=== PATIENT | female | born 1965 | race American Indian/Alaskan Native ===

== ENCOUNTER 2021-08-10 07:13 | Emergency (ER) | payer SELFPAY ==
[2021-08-10 07:24] VITALS: BP 145/64
[2021-08-10] MEDS ORDERED: HYDROcodone/ACETAMINOPHEN 10-325MG TAB PO ONE (07:29)
[2021-08-10 08:04] LABS: Basophils # (Auto) 0.1 K/mm3 (0.0-0.1); Basophils % (Auto) 1.6 % (0.0-1.8); Eosinophils # (Auto) 0.1 K/mm3 (0.0-0.4); Hematocrit 39.1 % (30.3-42.9); Hemoglobin 13.4 gm/dl (10.1-14.3); Lymphocytes # (Auto) 1.9 K/mm3 (1.2-5.4); Lymphocytes % (Auto) 37.9 % (13.4-35.0); Mean Corpuscular HGB Conc 34 % (30-34); Mean Corpuscular Volume 97 fl (79-97); Monocytes # (Auto) 0.6 K/mm3 (0.0-0.8); Monocytes % (Auto) 12.1 % (0.0-7.3); Platelet Count 270 K/mm3 (140-440); Red Blood Count 4.03 M/mm3 (3.65-5.03); Red Cell Distribution Width 13.2 % (13.2-15.2)
--- NOTE | 2021-08-10 08:23 | Vascular Lab Report ---
DUPLEX DOPPLER LOWER EXTREMITY VEINS, LEFT INDICATION: left leg pain. TECHNIQUE: Duplex doppler imaging was performed through the veins of the left lower extremity using venous compr ession and other maneuvers. COMPARISON: No relevant prior imaging study available. FINDINGS: Left Common femoral vein: Negative. Left Superficial femoral vein: Negative. Left Popliteal vein: Negative. Left Calf veins: Negative. Additional findings: None.. IMPRESSION: 1. No sonographic evidence for DVT in the left lower extremity. Signer Name: Lee Jones MD Signed: 08/10/2021 8:18 AM Workstation Name: [id number]
[2021-08-10 08:25] LABS: Alanine Aminotransferase 21 units/L (7-56); Blood Urea Nitrogen 11 mg/dL (7-17); Calcium 8.9 mg/dL (8.4-10.2); Hemolysis Index 7
--- NOTE | 2021-08-10 08:27 | Emergency Department Report ---
ED Lower Extremity HPI - General Chief Complaint: Extremity Injury, Lower Stated Complaint: PRESSURE IN LT LEG Time Seen by Provider: 08/10/21 07:28 Source: patient Mode of arrival: Ambulatory Limitations: No Limitations - History of Present Illness Initial Comments: This is a 55-year-old female nontoxic, well nourished in appearance, no acute signs of distress presents to the ED with c/o of left leg pain several days. Patient stated that she has been walking a lot but denies any injuries or trauma. Patient stated has pain in the calf area. Patient denies any numbness, tingling, fever, chills, nausea, vomiting, chest pain, shortness of breath, headache, stiff neck. Patient denies any joint swelling or joint redness. Patient denies decreased range of motion or abnormal gait. Patient denies any allergies. Patient denies any recent travels, long car rides or recent hospital stays. Denies any oral contraceptives. MD Complaint: leg injury -: days(s) Injury: Leg: Left Severity: mild Severity scale (0 -10): 3 Improves With: immobilization Worsens With: palpation Associated Symptoms: ambulatory. denies: snap/pop sensation, swelling, n umbness, tingling, unable to bear weight, able to partially bear weight - Related Data Previous Rx's Medication Instructions Recorded Last Taken Type Cyclobenzaprine [Flexeril] 10 mg PO QHS PRN #10 tablet 08/10/21 Unknown Rx Naproxen 500 mg PO Q12H PRN #12 tablet 08/10/21 Unknown Rx Allergies Allergy/AdvReac Type Severity Reaction Status Date / Time No Known Allergies Allergy Unverified 08/10/21 07:17 ED Review of Systems ROS: Stated complaint: PRESSURE IN LT LEG Other details as noted in HPI Comment: All other systems reviewed and negative Constitutional: denies: chills, fever Eyes: denies: eye pain, eye discharge, vision change ENT: denies: ear pain, throat pain Respiratory: denies: cough, shortness of breath, wheezing Cardiovascular: denies: chest pain, palpitations Endocrine: no symptoms reported Gastrointestinal: denies: abdominal pain, nausea, diarrhea Genitourinary: denies: urgency, dysuria, discharge Musculoskeletal: denies: back pain, joint swelling, arthralgia Skin: denies: rash, lesions Neurological: denies: headache, weakness, paresthesias Psychiatric: denies: anxiety, depression Hematological/Lymphatic: denies: easy bleeding, easy bruising ED Past Medical Hx - Past Medical History Previous Medical History?: Yes Hx Hypertension: Yes - Surgical History Additional Surgical History: ECTOPIC - Medications Home Medications: Home Medications Medication Instructions Recorded Confirmed Last Taken Type Cyclobenzaprine [Flexeril] 10 mg PO QHS PRN #10 tablet 08/10/21 Unknown Rx Naproxen 500 mg PO Q12H PRN #12 tablet 08/10/21 Unknown Rx ED Physical Exam - General Limitations: No Limitations General appearance: alert, in no apparent distress - Head Head exam: Present: atraumatic, normocephalic - Eye Eye exam: Present: normal appearance - Neck Neck exam: Present: normal inspection, full ROM. Absent: lymphadenopathy - Respiratory Respiratory exam: Absent: respiratory distress - Cardiovascular Cardiovascular Exam: Present: regular rate - Extremities Exam Extremities exam: Present: normal inspection, full ROM, tenderness, normal capillary refill, calf tenderness. Absent: joint swelling - Expanded Lower Extremity Exam Left Hip exam: Present: normal inspection, full ROM. Absent: tenderness, swelling Upper Leg exam: Present: normal inspection, full ROM. Absent: tenderness, swelling Knee exam: Present: normal inspection, full ROM. Absent: tenderness, swelling Lower Leg exam: Present: normal inspection, full ROM, tenderness. Absent: s welling, abrasion, laceration, ecchymosis, deformity, crepidus, dislocation, erythema, palpable cord, William's sign Ankle exam: Present: normal inspection, full ROM. Absent: tenderness, swelling Foot/Toe exam: Present: normal inspection, full ROM. Absent: tenderness, swelling Neuro vascular tendon exam: Present: no vascular compromise. Absent: pulse deficit, abnormal cap refill, sensory deficit, extremity cold to touch Gait: Positive: observed and normal 1 - pain here - Back Exam Back exam: Present: normal inspection, full ROM - Neurological Exam Neurological exam: Present: alert, oriented X3, normal gait - Psychiatric Psychiatric exam: Present: normal affect, normal mood - Skin Skin exam: Present: warm, dry, intact, normal color. Absent: rash ED Course Vital Signs 08/10/21 08/10/21 07:21 08:05 Temperature 97.8 F Pulse Rate 64 Respiratory 20 18 Rate Blood Pressure 145/64 O2 Sat by Pulse 100 Oximetry - Reevaluation(s) Reevaluation #1: 08/10/21 08:28 Patient is speaking in full sentences with no signs of distress noted. ED Lower Extremity MDM - Lab Data Result diagrams: 08/10/21 07:46 08/10/21 07:46 - Radiology Data [facility] [address] [place] [address] Vascular Lab Report Signed Patient: CHERRY DAVILA MR#: [id number] : 1965 Acct:[id number] Age/Sex: 55 / F ADM Date: 08/10/21 Loc: ED Attending Dr: Ordering Physician: TOMAS NIÑO NP Date of Service: 08/10/21 Procedure(s): VL venous duplex LE LT Accession Number(s): [id number] cc: TOMAS NIÑO NP DUPLEX DOPPLER LOWER EXTREMITY VEINS, LEFT INDICATION: left leg pain. TECHNIQUE: Duplex doppler imaging was performed through the veins of the left lower extremity using venous compression and other maneuvers. COMPARISON: No relevant prior imaging study available. FINDINGS: Left Common femoral vein: Negative. Left Superficial femoral vein: Negative. Left Popliteal vein: N egative. Left Calf veins: Negative. Additional findings: None.. IMPRESSION: 1. No sonographic evidence for DVT in the left lower extremity. Signer Name: Lee Jones MD Signed: 08/10/2021 8:18 AM Workstation Name: [id number] Transcribed By: JANET Dictated By: Lee Jones MD Electronically Au thenticated By: Lee Jones MD Signed Date/Time: 08/10/21817 DD/ 7 TD/TT: - Medical Decision Making 55-year-old female that presents with hypokalemia with left muscle strain in the calf. Patient is stable and was examined by me. Patient is notified of the lab results and ultrasound Doppler results with no questions noted by the jaime ent. Patient received [place] for pain which stated symptoms are improved and subsided. Patient stated family member will drive her home after discharge due to possible drowsiness of [place]. Patient also received 40 MEQ potassium. Patient educated on potassium food intake. Patient will be treated with Flexeril and naproxen. Patient was instructed to follow-up with a primary care doctor in 3-5 days or if symptoms worsen and continue return to emergency room as soon as possible. At time of discharge, the patient does not seem toxic or ill in appearance. No acute signs of distress noted. Patient agrees to discharge treatment plan of care. No further questions noted by the patient. Critical care attestation.: If time is entered above; I have spent that time in minutes in the direct care of this critically ill patient, excluding procedure time. ED Disposition Clinical Impression: Hypokalemia Muscle strain of left lower leg Qualifiers: Encounter type: initial encounter Qualified Code(s): S86.912A - Strain of unspecified muscle(s) and tendon(s) at lower leg level, left leg, initial encounter Disposition: HOME / SELF CARE / HOMELESS Is pt being admited?: No Does the pt Need Aspirin: No Condition: Stable Instructions: Hypokalemia, Cyclobenzaprine tablets Additional Instructions: Follow-up with a primary care doctor in 3-5 days or if symptoms worsen and continue return to emergency room as soon as possible. Take ibuprofen and Flexeril as prescribed. Do not operate heavy machinery while taking Flexeril due to sedation Prescriptions: Cyclobenzaprine [Flexeril] 10 mg PO QHS PRN #10 tablet PRN Reason: Muscle Spasm Naproxen 500 mg PO Q12H PRN #12 tablet PRN Reason: Pain , Severe (7-10) Referrals: PRIMARY MD MALCOLM [Primary Care Provider] - 3-5 Days REBECA FELDMAN MD [Staff Physician] - 3-5 Days Forms: Work/School Release Form(ED) Time of Disposition: 08:48
[2021-08-10 08:33] LABS: BUN/Creatinine Ratio 16
[2021-08-10] MEDS ORDERED: POTASSIUM CHLORIDE ER 20 MEQ TAB PO ONE (08:43)
== END 2021-08-10 09:00 | disposition home or self-care (01) ==
LOC: ED 07:13
DX: S86.912A Strain of unspecified muscle(s) and tendon(s) at lower leg level, left leg, initial encounter (principal); E87.6 Hypokalemia; I10 Essential (primary) hypertension
CPT/HCPCS: 36415; 80053; 82550; 85025; 99284

== ENCOUNTER 2021-08-17 18:07 | Emergency (ER) | payer SELFPAY ==
[2021-08-17 19:38] VITALS: BP 145/77
[2021-08-17] MEDS ORDERED: ONDANSETRON 4 MG ODT TAB PO ONE (20:21)
[2021-08-17] MEDS ORDERED: dexAMETHasone 20 MG/5 ML VIAL IM ONE (20:21)
[2021-08-17] MEDS ORDERED: HYDROcodone/ACETAMINOPHEN 7.5-325MG TAB PO ONE (20:21)
[2021-08-17 20:44] LABS: Basophils # (Auto) 0.1 K/mm3 (0.0-0.1); Basophils % (Auto) 1.9 % (0.0-1.8); Eosinophils # (Auto) 0.1 K/mm3 (0.0-0.4); Eosinophils % (Auto) 1.4 % (0.0-4.3); Hematocrit 37.4 % (30.3-42.9); Hemoglobin 13.2 gm/dl (10.1-14.3); Lymphocytes # (Auto) 2.6 K/mm3 (1.2-5.4); Mean Corpuscular HGB Conc 35 % (30-34); Mean Corpuscular Volume 97 fl (79-97); Monocytes # (Auto) 0.5 K/mm3 (0.0-0.8); Monocytes % (Auto) 8.4 % (0.0-7.3); Platelet Count 272 K/mm3 (140-440); Red Blood Count 3.85 M/mm3 (3.65-5.03); Red Cell Distribution Width 13.3 % (13.2-15.2)
[2021-08-17 21:07] LABS: Alanine Aminotransferase 18 units/L (7-56); Albumin 4.3 g/dL (3.9-5); Blood Urea Nitrogen 12 mg/dL (7-17); Calcium 9.6 mg/dL (8.4-10.2); Hemolysis Index 48
[2021-08-17 21:08] LABS: BUN/Creatinine Ratio 20
--- NOTE | 2021-08-17 22:40 | Vascular Lab Report ---
DUPLEX DOPPLER LOWER EXTREMITY VEINS, LEFT INDICATION / CLINICAL INFORMATION: Left leg pain. TECHNIQUE: Duplex doppler imaging was performed through the veins of the left lower extremity using v enous compression and other maneuvers. COMPARISON: 08/10/2021 FINDINGS: LEFT COMMON FEMORAL VEIN: Negative. LEFT FEMORAL VEIN: Negative. LEFT POPLITEAL VEIN: Negative. LEFT CALF VEINS: Negative. ADDITIONAL FINDINGS: None. IMPRESSION: 1. No sonographic evidence for DVT in the left lower extremity. Signer Name: Kevin Hayes DO Signed: 08/17/2021 10:35 PM Workstation Name: [id number]
--- NOTE | 2021-08-17 23:23 | Emergency Department Report ---
ED Extremity Problem HPI - General Chief complaint: Extremity Injury, Lower Stated complaint: PRESSURE IN RT LEG Source: patient Mode of arrival: Ambulatory Limitations: No Limitations - History of Present Illness Initial comments: Patient is a 55-year-old -[place] female with a history of chronic osteoarthritis and hypertension who presents to the ED with complaint of acute onset persistent right hip and right thigh and right lower leg pain for the last 3 weeks, worse in the last 1 week. Patient states the pain is especially worse with palpation or any movement. Patient was initially evaluated in this ED 24 hours ago and discharged home on naproxen and cyclobenzaprine but states that these medications have not helped control her pain. Patient denies fall, tr aumatic injury, chest pain, shortness of breath, nausea and vomiting, fever, chills, dizziness, syncope, lower back pain, urinary frequency and urgency, urinary incontinence, saddle paresthesia or numbness and tingling or weakness of lower extremities bilaterally. MD Complaint: extremity pain (left leg pain), joint paint (left hip and left thigh pain) -: Sudden, week(s) (3) Location: left, lower extremity History of Same: Yes -: Yes arthralgia, No fever, No associated dyspnea, No associated chest pain Radiation: distal Severity scale (0 -10): 10 Quality: aching, sharp Consistency: constant Improves with: nothing Worsens with: weight bearing, walking, exertion, palpation Associated Symptoms: denies other symptoms, arthralgias. denies: chest pain, shortness of breath, myalgias, rash - Related Data Previous Rx's Medication Instructions Recorded Last Taken Type Cyclobenzaprine [Flexeril] 10 mg PO QHS PRN #10 tablet 08/10/21 Unknown Rx Naproxen 500 mg PO Q12H PRN #12 tablet 08/10/21 Unknown Rx Baclofen 20 mg PO Q12H PRN #24 tablet 08/17/21 Unknown Rx predniSONE [Deltasone] 40 mg PO QDAY #12 tab 08/17/21 Unknown Rx traMADoL [Ultram] 50 mg PO Q6HR PRN #12 tablet 08/17/21 Unknown Rx Allergies Allergy/AdvReac Type Severity Reaction Status Date / Time No Known Allergies Allergy Verified 08/10/21 08:51 ED Review of Systems ROS: Stated complaint: PRESSURE IN RT LEG Other details as noted in HPI Constitutional: denies: chills, fever Eyes: denies: eye pain, eye discharge, vision change ENT: denies: ear pain, throat pain Respiratory: denies: cough, shortness of breath, wheezing Cardiovascular: denies: chest pain, palpitations Endocrine: no symptoms reported Gastrointestinal: denies: abdominal pain, nausea, diarrhea Genitourinary: denies: urgency, dysuria, discharge Musculoskeletal: arthralgia (Left leg pain, left hip pain), myalgia. denies: back pain, joint swelling Skin: denies: rash, lesions Neurological: denies: headache, weakness, paresthesias Psychiatric: denies: anxiety, depression Hematological/Lymphatic: denies: easy bleeding, easy bruising ED Past Medical Hx - Past Medical History Previous Medical History?: Yes Hx Hypertension: Yes - Surgical History Past Surgical History?: Yes Additional Surgical History: ECTOPIC - Medications Home Medications: Home Medications Medication Instructions Recorded Confirmed Last Taken Type Cyclobenzaprine [Flexeril] 10 mg PO QHS PRN #10 tablet 08/10/21 Unknown Rx Naproxen 500 mg PO Q12H PRN #12 tablet 08/10/21 Unknown Rx Baclofen 20 mg PO Q12H PRN #24 tablet 08/17/21 Unknown Rx predniSONE [Deltasone] 40 mg PO QDAY #12 tab 08/17/21 Unknown Rx traMADoL [Ultram] 50 mg PO Q6HR PRN #12 tablet 08/17/21 Unknown Rx ED Physical Exam - General Limitations: No Limitations General appearance: alert, in no apparent distress - Head Head exam: Present: atraumatic, normocephalic, normal inspection - Eye Eye exam: Present: normal appearance, PERRL, EOMI Pupils: Present: normal accommodation - ENT ENT exam: Present: normal exam, normal orophraynx, mucous membranes moist, TM's normal bilaterally, normal external ear exam - Neck Neck exam: Present: normal inspection, full ROM - Respiratory Respiratory exam: Present: normal lung sounds bilaterally. Absent: respiratory distress, wheezes, rales, rhonchi, chest wall tenderness, accessory muscle use - Cardiovascular Cardiovascular Exam: Present: regular rate, normal rhythm, normal heart sounds. Absent: systolic murmur, diastolic murmur, rubs, gallop - GI/Abdominal GI/Abdominal exam: Present: soft, normal bowel sounds. Absent: tenderness, guarding, rebound, hyperactive bowel sounds, hypoactive bowel sounds - Extremities Exam Extremities exam: Present: normal inspection, full ROM, tenderness (Palpable left hip and diffuse left thigh and lower leg tenderness), normal capillary refill. Absent: pedal edema, joint swelling, calf tenderness - Back Exam Back exam: Present: normal inspection, full ROM. Absent: tenderness, CVA t enderness (R), CVA tenderness (L), muscle spasm, paraspinal tenderness, vertebral tenderness - Neurological Exam Neurological exam: Present: alert, oriented X3, CN II-XII intact, normal gait, reflexes normal - Psychiatric Psychiatric exam: Present: normal affect, normal mood, anxious - Skin Skin exam: Present: warm, dry, intact, normal color. Absent: rash ED Course Vital Signs 08/17/21 19:34 Temperature 98.8 F Pulse Rate 78 Respiratory 18 Rate Blood Pressure 145/77 O2 Sat by Pulse 100 Oximetry ED Medical Decision Making - Lab Data Result diagrams: 08/17/21 20:26 08/17/21 20:26 - Radiology Data Radiology results: report reviewed, image reviewed [address] [address] Vascular Lab Report Signed Patient: CHERRY DAVILA MR#: [id number] : 1965 Acct:[id number] Age/Sex: 55 / F ADM Date: 08/17/21 Loc: ED Attending Dr: Ordering Physician: BLU COOLEY Date of Service: 08/17/21 Procedure(s): VL venous duplex LE LT Accession Number(s): [id number] cc: BLU COOLEY DUPLEX DOPPLER LOWER EXTREMITY VEINS, LEFT INDICATION / CLINICAL INFORMATION: Left leg pain. TECHNIQUE: Duplex doppler imaging was performed through the veins of the left lower extremity using venous compression and other maneuvers. COMPARISON: 08/10/2021 FINDINGS: LEFT COMMON FEMORAL VEIN: Negative. LEFT FEMORAL VEIN: Negative. LEFT POPLITEAL VEIN: Negative. LEFT CALF VEINS: Negative. ADDITIONAL FINDINGS: None. IMPRESSION: 1. No sonographic evidence for DVT in the left lower extremity. Signer Name: Kevin Hayes DO Signed: 08/17/2021 10:35 PM Workstation Name: [id number] Transcribed By: LEESA Dictated By: KEVIN HAYES DO Electronically Authenticated By: KEVIN HAYES DO Signed Date/Time: 08/17/212234 DD/ 33 TD/TT: - Medical Decision Making This is a 55-year-old -[place] female with a history of chronic osteoarthritis and hypertension who presents to the ED with complaint of acute onset persistent right hip and right thigh and right lower leg pain for the last 3 weeks, worse in the last 1 week. Patient states the pain is especially worse with palpation or any movement. Patient was initially evaluated in this ED 24 hours ago and discharged home on naproxen and cyclobenzaprine but states that these medications have not helped control her pain. In the ED, patient is alert and oriented x3 and is not in any distress. Patient was treated for pain in the ED. The left leg Doppler ultrasound showed no sonographic evidence of DVT. On reevaluation, patient's pain is moderately controlled with medications. Patient will discharge home on pain medications and advised to follow-up with her primary care physician in 5 to 7 days for reevaluation. Patient is advised return to the ED immediately if symptoms get worse. - Differential Diagnosis DVT; muscle strain; muscle spasm; bursitis; tendinitis Critical care attestation.: If time is entered above; I have spent that time in minutes in the direct care of this critically ill patient, excluding procedure time. ED Disposition Clinical Impression: Muscle spasm of left lower extremity Muscle strain of left lower extremity Qualifiers: Encounter type: initial encounter Qualified Code(s): S86.912A - Strain of unspecified muscle(s) and tendon(s) at lower leg level, left leg, initial encounter Disposition: 01 HOME / SELF CARE / HOMELESS Is pt being admited?: No Does the pt Need Aspirin: No Condition: Stable Instructions: Muscle Cramps and Spasms, [id number], Muscle Strain, [id number] Additional Instructions: The Doppler ultrasound of left leg showed no sonographic evidence of DVT. All lab test results were reviewed and are all nonactionable. Your symptoms are likely musculoskeletal muscle spasm muscle strain. Therefore take medications with food, drink plenty of fluids and follow-up with your primary care physician in 5 to 7 days for reevaluation. Return to the ED immediately if symptoms get worse. Prescriptions: Baclofen 20 mg PO Q12H PRN #24 tablet PRN Reason: Muscle Spasm predniSONE [Deltasone] 40 mg PO QDAY #12 tab traMADoL [Ultram] 50 mg PO Q6HR PRN #12 tablet PRN Reason: Pain Referrals: [facility] [Provider Group] - 3-5 Days Time of Disposition: 23:21 Print Language: THAI
== END 2021-08-18 00:21 | disposition home or self-care (01) ==
LOC: ED 18:07
DX: S86.912A Strain of unspecified muscle(s) and tendon(s) at lower leg level, left leg, initial encounter (principal); M62.838 Other muscle spasm; M25.552 Pain in left hip; I10 Essential (primary) hypertension; Z79.899 Other long term (current) drug therapy; X58.XXXA Exposure to other specified factors, initial encounter; Y93.89 Activity, other specified; Y92.488 Other paved roadways as the place of occurrence of the external cause; Y99.8 Other external cause status
CPT/HCPCS: 36415; 80053; 85025; 93971; 96372; 99284; J1100; Q0162

== ENCOUNTER 2021-09-10 15:57 | Emergency (ER) | payer SELFPAY ==
[2021-09-10 16:34] VITALS: BP 170/83
[2021-09-10] MEDS ORDERED: IBUPROFEN 600 MG TAB PO ONE (16:35)
--- NOTE | 2021-09-10 16:48 | Emergency Department Report ---
ED Extremity Problem HPI - General Chief complaint: Anxiety Stated complaint: LFT LEG SORE,WEIGHT LOSS,ANIIEXTY Source: patient Mode of arrival: Ambulatory Limitations: No Limitations - History of Present Illness Initial comments: The patient was evaluated in the emergency department for symptoms described in the history of present illness. He/she was evaluated in the context of the global COVID-19 pandemic, which necessitated consideration that the patient might be at risk for infection with the virus that causes COVID-19. Institutional protocols and algorithms that pertain to the evaluation of patients at risk for COVID-19 are in a state of rapid change based on information released by regulatory bodies including the CDC and federal and state organizations. These policies and algorithms were followed during the patient's care in the emergency department. Please note that these policies, procedures and recommendations changed on a rapid basis. 30-[id number]-lwa-year-old -[place] female presents to the emergency room for left joyce pain that radiates up her leg. Patient denies any injury. She also complains of anxiety and depression. Patient states that she report her friend that she was helping take care of to the emergency room about a week ago and within 3 days of being in the hospital she . Patient states that she is dealing with the grief of that. She reports that she has a history of depression and has been taking Lexapro in the past. Patient states that been taking prednisone baclofen and tramadol without much relief. She states that when she was take the medicine she was having nausea and vomiting. Patient denies any suicidal homicidal ideation. MD Complaint: extremity pain Location: left - Related Data Previous Rx's Medication Instructions Recorded Last Taken Type Cyclobenzaprine [Flexeril] 10 mg PO QHS PRN #10 tablet 08/10/21 Unknown Rx Naproxen 500 mg PO Q12H PRN #12 tablet 08/10/21 Unknown Rx Baclofen 20 mg PO Q12H PRN #24 tablet 08/17/21 Unknown Rx predniSONE [Deltasone] 40 mg PO QDAY #12 tab 08/17/21 Unknown Rx traMADoL [Ultram] 50 mg PO Q6HR PRN #12 tablet 08/17/21 Unknown Rx Escitalopram Oxalate [Lexapro] 5 mg PO QDAY #30 tablet 09/10/21 Unknown Rx Allergies Allergy/AdvReac Type Severity Reaction Status Date / Time No Known Allergies Allergy Verified 08/10/21 08:51 ED Review of Systems ROS: Stated complaint: LFT LEG SORE,WEIGHT LOSS,ANIIEXTY Other details as noted in HPI ED Past Medical Hx - Past Medical History Previous Medical History?: Yes Hx Hypertension: Yes Additional medical history: anxiety - Surgical History Past Surgical History?: Yes Additional Surgical History: ECTOPIC - Medications Home Medications: Home Medications Medication Instructions Recorded Confirmed Last Taken Type Cyclobenzaprine [Flexeril] 10 mg PO QHS PRN #10 tablet 08/10/21 Unknown Rx Naproxen 500 mg PO Q12H PRN #12 tablet 08/10/21 Unknown Rx Baclofen 20 mg PO Q12H PRN #24 tablet 08/17/21 Unknown Rx predniSONE [Deltasone] 40 mg PO QDAY #12 tab 08/17/21 Unknown Rx traMADoL [Ultram] 50 mg PO Q6HR PRN #12 tablet 08/17/21 Unknown Rx Escitalopram Oxalate [Lexapro] 5 mg PO QDAY #30 tablet 09/10/21 Unknown Rx ED Physical Exam - General Limitations: No Limitations General appearance: alert, in no apparent distress - Head Head exam: Present: atraumatic, normocephalic - Eye Eye exam: Present: normal appearance - ENT ENT exam: Present: mucous membranes moist, normal external ear exam - Neck Neck exam: Present: normal inspection, full ROM - Respiratory Respiratory exam: Present: normal lung sounds bilaterally. Absent: respiratory distress, accessory muscle use - Cardiovascular Cardiovascular Exam: Present: regular rate - Expanded Lower Extremity Exam Left Hip exam: Present: normal inspection Upper Leg exam: Present: normal inspection Knee exam: Present: full ROM. Absent: tenderness, swelling Lower Leg exam: Present: full ROM, tenderness. Absent: swelling, abrasion, deformity, erythema, palpable cord, William's sign Ankle exam: Present: normal inspection, full ROM Foot/Toe exam: Present: normal inspection, full ROM Neuro vascular tendon exam: Present: no vascular compromise - Back Exam Back exam: Present: normal inspection - Neurological Exam Neurological exam: Present: alert, oriented X3, normal gait - Psychiatric Psychiatric exam: Present: normal affect, normal mood, depressed. Absent: homicidal ideation, suicidal ideation - Skin Skin exam: Present: warm, dry, intact, normal color. Absent: rash ED Course Vital Signs 09/10/21 16:07 Temperature 98.7 F Pulse Rate 82 Respiratory 14 Rate Blood Pressure 170/83 O2 Sat by Pulse 90 Oximetry ED Medical Decision Making - Radiology Data Radiology results: report reviewed [facility] [address] [place] [address] XRay Report Signed Patient: CHERRY DAVILA MR#: [id number] : 1965 Acct:[id number] Age/Sex: 55 / F ADM Date: 09/10/21 Loc: ED Attending Dr: Ordering Physician: BLU MCCABE Date of Service: 09/10/21 Procedure(s): XR tibia fibula 2V LT Accession Number(s): [id number] cc: BLU MCCABE Fluoro Time In Minutes: LEFT TIBIA-FIBULA 4 VIEW(S) INDICATION / CLINICAL INFORMATION: Joyce pain with tenderness COMPARISON: None available. FINDINGS: BONES / JOINT(S): No acute fracture or subluxation. No significant arthritis. SOFT TISSUES: No significant abnormality. ADDITIONAL FINDINGS: None. Signer Name: Magdy Kaye MD Signed: 09/10/2021 5:09 PM Workstation Name: [id number] Transcribed By: TL Dictated By: Magdy Kaye MD Electronically Authenticated By: Magdy Kaye MD Signed Date/Time: 09/10/211708 DD/ 08 TD/TT: - Medical Decision Making 67-obyt-[age]ux-year-old -[place] female presents to the emergency room for left joyce pain that radiates up her leg. Patient denies any injury. She also complains of anxiety and depression. Patient states that she report her friend that she was helping take care of to the emergency room about a week ago and within 3 days of being in the hospital she . Patient states that she is dealing with the grief of that. She reports that she has a history of depression and has been taking Lexapro in the past. Patient states that been taking prednisone baclofen and tramadol without much relief. She states that when she was take the medicine she was having nausea and vomiting. Denies suicidal homicidal ideation. X-ray of tib-fib of left shows no acute abnormalities X-ray of right knee shows tricompartment degenerative changes Critical care attestation.: If time is entered above; I have spent that time in minutes in the direct care of this critically ill patient, excluding procedure time. ED Disposition Clinical Impression: Pain of left lower extremity, Depression, Grief Disposition: HOME / SELF CARE / HOMELESS Is pt being admited?: No Does the pt Need Aspirin: No Condition: Stable Instructions: Living With Depression, Managing Loss, Adult Additional Instructions: X-rays are negative for any acute findings or concerns it does show arthritis. Take medication as prescribed. Like previous try taking Lexapro and to follow- up with mental health. I have placed referrals for community clinics that can provide primary care. Prescriptions: Escitalopram Oxalate [Lexapro] 5 mg PO QDAY #30 tablet Referrals: PRIMARY CAREMD [Primary Care Provider] - 3-5 Days REBECA FELDMAN MD [Staff Physician] - 3-5 Days [facility] [place]Outside] - 3-5 Days [facility] [Outside] - 3-5 Days [facility] [Outside] - 3-5 Days Forms: Work/School Release Form(ED) Time of Disposition: 18:22
--- NOTE | 2021-09-10 17:13 | XRay Report ---
RIGHT KNEE 2 VIEW(S) INDICATION / CLINICAL INFORMATION: KNEE PAIN/SWELLING COMPARISON: None available. FINDINGS: BONES / JOINT(S): No acute fracture or subluxation. Mild to moderate tricompartmental degenerative ar throsis SOFT TISSUES: No significant abnormality. ADDITIONAL FINDINGS: None. Signer Name: Magdy Kaye MD Signed: 09/10/2021 5:08 PM Workstation Name: [id number]
--- NOTE | 2021-09-10 17:14 | XRay Report ---
LEFT TIBIA-FIBULA 4 VIEW(S) INDICATION / CLINICAL INFORMATION: Joyce pain with tenderness COMPARISON: None available. FINDINGS: BONES / JOINT(S): No acute fracture or subluxation. No significant arthritis. SOFT TISSUES: No significant abnormality. ADDITIONAL FINDINGS: None. Signer Name: Magdy Kaye MD Signed: 09/10/2021 5:09 PM Workstation Name: [id number]
== END 2021-09-10 19:10 | disposition home or self-care (01) ==
LOC: ED 15:57
DX: M79.605 Pain in left leg (principal); F32.9 Major depressive disorder, single episode, unspecified; M25.561 Pain in right knee; F43.21 Adjustment disorder with depressed mood; I10 Essential (primary) hypertension; F41.9 Anxiety disorder, unspecified; Z79.899 Other long term (current) drug therapy
CPT/HCPCS: 99283

== ENCOUNTER 2022-04-09 12:26 | Outpatient (CLI) | payer OTHER ==
--- NOTE | 2022-04-09 14:53 | XRay Report ---
CERVICAL SPINE 3 VIEWS INDICATION: SCIATICA. COMPARISON: None. IMPRESSION: Normal alignment. Mild discogenic DJD is identified at C5-6 and C6-7. The remaining dis c levels and facet joints are unremarkable. No acute osseous or soft tissue abnormality. LUMBOSACRAL SPINE 3 VIEWS INDICATION: SCIATICA. COMPARISON: None. IMPRESSION: Normal alignment. Disc space height is preserved throughout the lumbar region. Mild to moderate facet arthropathy is identified throughout the lumbar region. The SI joints are unremarkable . No acute osseous or soft tissue abnormality. BILATERAL KNEES 2 VIEWS INDICATION: Bilateral knee pain. COMPARISON: None. IMPRESSION: No acute osseous or soft tissue abnormality. No significant DJD. Signer Name: Semaj Boyd Jr, MD Signed: 04/09/2022 2:48 PM Workstation Name: [id number]
== END 2022-04-09 12:27 | disposition home or self-care (01) ==
LOC: XRAY 12:26
PROVIDERS: ATTEND Internal Medicine
DX: M47.816 Spondylosis without myelopathy or radiculopathy, lumbar region (principal); M47.812 Spondylosis without myelopathy or radiculopathy, cervical region; M25.562 Pain in left knee; M25.561 Pain in right knee
CPT/HCPCS: 72040; 72100